=== PATIENT | female | born 1990 | race Caucasian/White ===

== ENCOUNTER 2025-01-25 14:15 | Emergency (ER) | payer OTHER ==
[~2025-01-25] VITALS: Ht 177.8 cm; Wt 111.1 kg
[~2025-01-25 14:15] MED LIST: LEVOTHYROXINE112 MCG PO
[2025-01-25] MEDS: SODIUM CHLORIDE 0.9% 1000ML 1,000 ML IV STA (15:09)
[2025-01-25] MEDS: ONDANSETRON HCL INJ 2MG/ML 2ML 2 MG/ML VIAL IV STA (15:10)
[2025-01-25] MEDS: KETOROLAC TROMETHAMINE 30 MG/ML VIAL IV STA (15:10)
[2025-01-25 15:17] LABS: BASOPHILS % 0.3 % (0.0-1.0); EOSINOPHILS % 0.6 % (0.0-6.0); LYMPHOCYTES % 26.7 % (18.0-39.1); MONOCYTES % 8.7 % (4.4-11.3); NEUTROPHILS % 62.9 % (38.7-80.0); RED CELL DISTRIBUTION WIDTH 13.1 % (11.7-14.4)
[2025-01-25 15:34] LABS: LEUKOCYTE ESTERASE ,URINE 1+ (NEGATIVE); PROTEIN,URINE DIPSTICK >=300 (NEGATIVE); URINE UROBILINOGEN 1 mg/dL (0.2 - 1)
[2025-01-25 15:44] LABS: CALCIUM OXALATE CRYSTALS,UR FEW (FEW); EPITHELIAL CELLS,URINE MODERATE /LPF; WBC,URINE (MAN) >50 /HPF (0-5)
[2025-01-25 15:55] LABS: EST GLOMERULAR FILTRATION RATE 85.0 ML/MIN (>=60)
[2025-01-25 17:23] VITALS: PULSE 100; RESP 18; TEMP 98.7; O2SAT 100
[2025-01-25] MEDS ORDERED: DOXYCYCLINE HY100 MG PO (17:34)
[2025-01-25] MEDS ORDERED: CEFDINIR300 MG PO (17:34)
[2025-01-25] MEDS ORDERED: PYRIDIUM100 MG PO (17:34)
== END 2025-01-25 17:54 | disposition home or self-care (01) ==
LOC: ER 14:56
DX: N39.0 Urinary tract infection, site not specified (principal); R31.9 Hematuria, unspecified; R30.0 Dysuria; R10.9 Unspecified abdominal pain; M54.9 Dorsalgia, unspecified; Z88.1 Allergy status to other antibiotic agents
CPT/HCPCS: 36415; 74176; 80053; 81001; 85025; 87086; 99284; J0696; J1885; J2405; J7030